=== PATIENT | female | born 1955 | race Caucasian/White ===

== ENCOUNTER 2023-12-30 16:17 | Outpatient (REF) | payer MEDICARE, SELFPAY ==
[2023-12-30 18:48] LABS: Blood Urea Nitrogen 21 mg/dL (9-16); Calcium 10.1 mg/dL (8.4-10.2); Carbon Dioxide 29 mmol/L (22-29); Chloride 104 mmol/L (96-108); Estimated Glomerular Filt Rate > 60; Glucose Random 90 mg/dL (60-115); Potassium 4.2 mmol/L (3.3-5.1); Sodium 142 mmol/L (135-145)
[2023-12-30 19:07] LABS: Anion Gap 14 (12-20)
[2023-12-30 19:15] LABS: T4 Thyroxine 6.3 ug/dL (4.5-12.0); Thyroid Stimulating Hormone 2.76 uIU/mL (0.32-4.0)
[2023-12-30 19:18] LABS: Folate 6.5 ng/mL (> or = 4.0); Vitamin B12 559 pg/mL (200-900)
== END 2023-12-30 16:18 | disposition home or self-care (01) ==
LOC: HO.LAB 16:17
PROVIDERS: PCP Internal Medicine; Visit Provider Psychiatry & Neurology Neurology
DX: G30.9 Alzheimer's disease, unspecified (principal)
CPT/HCPCS: 36415; 80048; 82607; 82746; 84436; 84443